=== PATIENT | male | born 2000 | race Caucasian/White ===

== ENCOUNTER 2022-01-19 21:05 | Emergency (ER) | payer BC ==
[~2022-01-19] VITALS: Ht 188 cm; Wt 72.7 kg
[2022-01-19 21:12] VITALS: TEMP 98.4
[2022-01-19 22:44] VITALS: BP 145/81; PULSE 76
== END 2022-01-19 22:44 | disposition home or self-care (01) ==
LOC: COL.ER 21:05
DX: S61.412A Laceration without foreign body of left hand, initial encounter (principal); D67 Hereditary factor IX deficiency; W10.9XXA Fall (on) (from) unspecified stairs and steps, initial encounter; Y93.01 Activity, walking, marching and hiking

== ENCOUNTER 2022-02-28 14:00 | Outpatient (RCR) | payer BC | END 2022-03-03 | disposition home or self-care (01) | LOC: WSOT | DX: S66.822S Laceration of other specified muscles, fascia and tendons at wrist and hand level, left hand, sequela (principal); S61.402S Unspecified open wound of left hand, sequela ==

== ENCOUNTER 2022-04-02 11:15 | Outpatient (RCR) | payer BC | END 2022-04-03 | disposition home or self-care (01) | LOC: WSOT | DX: S66.822D Laceration of other specified muscles, fascia and tendons at wrist and hand level, left hand, subsequent encounter (principal); S61.402D Unspecified open wound of left hand, subsequent encounter ==

== ENCOUNTER 2022-04-16 11:00 | Outpatient (RCR) | payer BC | END 2022-04-16 13:03 | disposition home or self-care (01) | LOC: WSOT 11:00 | DX: S66.822S Laceration of other specified muscles, fascia and tendons at wrist and hand level, left hand, sequela (principal); S61.402S Unspecified open wound of left hand, sequela ==